=== PATIENT | female | born 2000 | race Two or more races ===

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

== ENCOUNTER 2021-01-23 09:53 | Emergency (ER) | payer MEDICAID ==
[2021-01-23 10:14] VITALS: BP 129/88; PULSE 61
--- NOTE | 2021-01-23 10:24 | EDM.PDOC ---
ED HPI GENERAL MEDICAL PROBLEM <Matilda Colindres - Last Filed: 01/23/21 11:56> - General Source of Information: Reports: Patient, RN, RN Notes Reviewed History Limitations: Reports: No Limitations - History of Present Illness Onset: Sudden Onset Date: 01/22/21 Location: Reports: Head Quality: Reports: Ache Severity: Moderate Improves with: Reports: None Worsens with: Reports: None Associated Symptoms: Reports: No Other Symptoms <KirtCurtis Harris - Last Filed: 01/23/21 14:47> - General Chief Complaint: Headache Stated Complaint: GEOVANNY REFERRAL Time Seen by Provider: 01/23/21 10:40 - History of Present Illness INITIAL COMMENTS - FREE TEXT/NARRATIVE: Eloise is a 20 y/o F with PMH of migraines, anxiety, MDD, ADHD, and oppositional defiant disorder. Yesterday at 6:30 am she was in her room trying to move her dog, fell and hit her head on a chair in her room. She did not lose consciousness and did not have an open wound from her fall. A few hours later she was in the kitchen, felt dizzy and passed out on her bed for about an hour. She had another similar episode a few hours later. Additionally, she has trouble sleeping and decreased appetite but no vomiting. Currently she is slightly dizzy with a slight headache. 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 Musculoskeletal History: Reports: None Neurological History: Reports: None Psychiatric History: Reports: ADHD, Anxiety, Depression Endocrine/Metabolic History: Reports: None Hematologic History: Reports: None Immunologic History: Reports: None Oncologic (Cancer) History: Reports: None Dermatologic History: Reports: None - Infectious Disease History Infectious Disease History: Reports: None - Past Surgical History Head Surgeries/Procedures: Reports: None HEENT Surgical History: Reports: Oral Surgery, Tonsillectomy Musculoskeletal Surgical History: Reports: Other (See Below) Other Musculoskeletal Surgeries/Procedures:: ingrown toenails <Matilda Colindres - Last Filed: 01/23/21 11:56> - Past Health History Medical/Surgical History: Denies Medical/Surgical History <Curtis Moralez - Last Filed: 01/23/21 14:47> Social & Family History - Family History Family Medical History: No Pertinent Family History - Caffeine Use Caffeine Use: Reports: Coffee, Soda Caffeine Use Comment: occasional coffee drinker, not regularly <Matilda Colindres - Last Filed: 01/23/21 11:56> ED ROS GENERAL - Review of Systems Review Of Systems: See Below Constitutional: Reports: Decreased Appetite. Denies: Fever, Chills, Malaise, Night Sweats, Diaphoresis, Weight Gain HEENT: Reports: Other (no neck stiffness or pain). Denies: Eye Discharge, Hearing Loss, Rhinitis, Vision Change Respiratory: Denies: Shortness of Breath, Cough, Sputum Cardiovascular: Reports: Lightheadedness, Palpitations. Denies: Chest Pain Endocrine: Denies: Fatigue GI/Abdominal: Denies: Abdominal Pain, Constipation, Diarrhea : Denies: Dysuria, Incontinence Musculoskeletal: Denies: Neck Pain Skin: Denies: Wound (Head is negative for any bruises, lesions or lumps), Lesions, Lumps Neurological: Reports: Dizziness, Headache. Denies: Confusion, Numbness, Paresthesia <Matilda Colindres - Last Filed: 01/23/21 11:56> ED EXAM, HEAD INJURY - Physical Exam Exam: See Below Exam Limited By: No Limitations General Appearance: Alert, No Apparent Distress Head: Atraumatic, Normocephalic. No: Scalp Lacerations, Scalp Swelling, Scalp Abrasions, Scalp Ecchymosis, Scalp Tenderness, Active Bleeding, Alvarez's Sign, Raccoon Eyes Nexus Criteria: No: Posterior, Midline Cervical Tenderness, Evidence of Intoxication, Altered Level of Consciousness, Focal Neurological Deficit, Painful Distraction Injuries Neck: Non-Tender, Full Range of Motion, Normal Inspection. No: Spinous Processes Tender, Stiff Neck, Tenderness Respiratory: No Respiratory Distress, Lungs Clear, Normal Breath Sounds, No Accessory Muscle Use Cardiovascular: Normal Peripheral Pulses, Regular Rate, Rhythm, No Murmur GI/Abdominal Exam: Normal Bowel Sounds, Soft, Non-Tender, No Organomegaly, No Distention Neurologic: No Motor/Sensory Deficits, Alert, Normal Mood/Affect, Oriented x 3 Skin: Normal Color, Warm/Dry <Matilda Colindres - Last Filed: 01/23/21 11:56> Course <Matilda Colindres - Last Filed: 01/23/21 11:56> <Curtis Moralez - Last Filed: 01/23/21 14:47> - Vital Signs Last Recorded V/S: Last Vital Signs Temp 98.1 F 01/23/21 10:13 Pulse 61 01/23/21 10:13 Resp 16 01/23/21 10:13 BP 129/88 01/23/21 10:13 Pulse Ox 99 01/23/21 10:13 - Orders/Labs/Meds Labs: Laboratory Tests 01/23/21 Range/Units 10:05 Urine HCG, Qual Negative Meds: Medications Discontinued Medications Generic Name Dose Route Start Last Admin Trade Name Miles PRN Reason Stop Dose Admin Metronidazole 2,000 mg 01/23/21 11:42 Metronidazole 250 Mg Tab PO 01/23/21 11:43 ONETIME ONE - Re-Assessments/Exams Free Text/Narrative Re-Assessment/Exam: 01/23/21 11:48 In ED Pt had normal neuro exam, no nausea/vomiting, no neck stiffness, or head wound. Head CT was negative for head intracranial bleed, fractures or brain pathology. Sending home with concussion precautions. Recommend follow up with PCP if continuing to have dizzy spells. 01/23/21 11:55 (BernadineMatilda Hassan) 01/23/21 I personally performed or re-performed the physical examination and medical decision making. I have verified all student documentation or findings, i ncluding history, physical exam and/or medical decision making. (Curtis Moralez) Departure - Departure Time of Disposition: 11:31 Condition: Good - Discharge Information *PRESCRIPTION DRUG MONITORING PROGRAM REVIEWED*: Not Applicable *COPY OF PRESCRIPTION DRUG MONITORING REPORT IN PATIENT MARIA ISABEL: Not Applicable <JoesphMatilda nvaas - Last Filed: 01/23/21 11:56> <Curtis Moralez - Last Filed: 01/23/21 14:47> - Departure Disposition: Home, Self-Care 01 Clinical Impression: Concussion Qualifiers: Encounter type: initial encounter Loss of consciousness presence/duration: without LOC Qualified Code(s): S06.0X0A - Concussion without loss of consci ousness, initial encounter - Discharge Information Instructions: Returning to School After a Concussion, Teen Referrals: Vince Mason MD [Primary Care Provider] - Forms: ED Department Discharge Additional Instructions: Follow concussion precautions including limiting screen time, overstimulation, driving, and physical activity in the next 2-3 weeks. No restriction for sleeping or rest. Take acetaminophen for headache. If still having episodes of dizziness, follow-up with your PCP, Dr. Mason, in the clinic. Sepsis Event Note (ED) - Focused Exam Vital Signs: Vital Signs Temp Pulse Resp BP Pulse Ox 01/23/21 10:13 98.1 F 61 16 129/88 99
--- NOTE | 2021-01-23 11:15 | CT ---
PROCEDURE INFORMATION: Exam: CT Head Without Contrast Exam date and time: 01/23/2021 11:05 AM Age: 20 years old Clinical indication: Injury or trauma; Fall; Unconscious; Injury date: 01/22/2021; Injury details: Patient fell and hit head yesterday; Additional info: Fell and hit head, 2 reported loc episodes TECHNIQUE: Imaging protocol: Computed tomography of the head without contrast. Radiation optimization: All CT scans at this facility use at least one of these dose optimization techniques: automated exposure control; mA and/or kV adjustment per patient size (includes targeted exams where dose is matched to clinical indication); or iterative reconstruction. COMPARISON: No relevant prior studies available. FINDINGS: Brain: There is no acute intracranial hemorrhage. No extra-axial fluid collection. No evidence of acute infarct. [place] white differentiation is intact. There is no evidence of mass. There is no mass effect or midline shift. Cerebral ventricles: No ventriculomegaly. Paranasal sinuses: Visualized sinuses are unremarkable. No fluid levels. Mastoid air cells: No significant mastoid effusion. Bones/joints: No acute fracture. Soft tissues: Unremarkable as visualized. IMPRESSION: No evidence of acute intracranial abnormality. No acute hemorrhage. No evidence of acute infarct or mass.
[2021-01-23] MEDS ORDERED: metroNIDAZOLE 250 MG Tab PO ONE (11:42)
== END 2021-01-23 11:54 | disposition home or self-care (01) ==
LOC: DL.ED 09:53
DX: S06.0X0A Concussion without loss of consciousness, initial encounter (principal); W20.8XXA Other cause of strike by thrown, projected or falling object, initial encounter; Y92.000 Kitchen of unspecified non-institutional (private) residence as the place of occurrence of the external cause
CPT/HCPCS: 70450; 81025; 99284-25

== ENCOUNTER 2021-03-30 14:36 | Emergency (ER) | payer MEDICAID ==
[2021-03-30 14:55] VITALS: BP 132/84; PULSE 108
== END 2021-03-30 15:36 | disposition home or self-care (01) ==
LOC: DL.ED 14:36
DX: K04.7 Periapical abscess without sinus (principal); K02.9 Dental caries, unspecified
CPT/HCPCS: 99283

== ENCOUNTER 2021-10-06 13:54 | Emergency (ER) | payer MEDICAID | END 2021-10-06 14:45 | disposition left against medical advice (07) | LOC: DL.ED 13:54 | DX: Z53.21 Procedure and treatment not carried out due to patient leaving prior to being seen by health care provider (principal) ==

== ENCOUNTER 2022-05-14 16:16 | Emergency (ER) | payer MEDICAID ==
[2022-05-14 16:32] VITALS: BP 135/103; PULSE 88
[2022-05-14 17:02] LABS: AMPHETAMINES,URINE NEGATIVE (NEGATIVE); BARBITURATES,URINE NEGATIVE (NEGATIVE); BENZODIAZEPINE,URINE NEGATIVE (NEGATIVE); MDMA (ECSTASY), URINE NEGATIVE (NEGATIVE); METHADONE,URINE NEGATIVE (NEGATIVE); METHAMPHETAMINES,URINE NEGATIVE (NEGATIVE); OPIATES,URINE NEGATIVE (NEGATIVE); OXYCODONE,URINE NEGATIVE (NEGATIVE); PHENCYCLIDINE,URINE NEGATIVE (NEGATIVE); TCA,URINE NEGATIVE (NEGATIVE)
[2022-05-14 17:19] LABS: ACETAMINOPHEN 0 ug/mL (10-30 (Therapeutic)); ESTIMATED GFR 127 mL/min (>=60)
[2022-05-14 17:22] LABS: PTT,PARTIAL THROMBOPLSTIN TIME 26.2 SEC (22.0-34.0)
[2022-05-14] MEDS: Phenazopyridine 95 MG Tab PO ONE (19:49)
[2022-05-14] MEDS: Nitrofurantoin Monohydrate/Macrocrystalline 100 MG Cap PO ONE (19:49)
[2022-05-15 08:54] LABS: ANION GAP 14.6 mEq/L (7-13); CHLORIDE,CL 103 mmol/L (98-107); SODIUM,NA 140 mmol/L (136-145)
== END 2022-05-14 19:51 | disposition home or self-care (01) ==
LOC: DL.ED 16:16
DX: R45.851 Suicidal ideations (principal); N30.00 Acute cystitis without hematuria
CPT/HCPCS: 36415; 80053; 80143; 80179; 80305-QW; 80307; 81001; 81025; 83735; 84443; 85025; 85610; 85730; 87086; 87491; 87563; 87591; 99284; 99285; A9270-GY

== ENCOUNTER 2023-05-02 13:29 | Emergency (ER) | payer MEDICAID ==
[2023-05-02 13:59] VITALS: BP 142/93; PULSE 70
[2023-05-02 14:05] LABS: BASOPHILS PERCENT AUTO 0.5 % (0.0-1.0); EOSINOPHILS PERCENT AUTO 1.3 % (1.0-3.0); HEMATOCRIT 42.9 % (37.0-47.0); HEMOGLOBIN 14.5 g/dL (12.0-16.0); LYMPHOCYTES PERCENT AUTO 37.4 % (20.5-50.1); MEAN CORPUSCULAR HEMOGLOBIN 29.5 pg (27.0-34.0); MEAN CORPUSCULAR HGB CONC 33.8 g/dL (33.0-35.0); MEAN CORPUSCULAR VOLUME 87.2 fL (80-100); MONOCYTES PERCENT AUTO 10.7 % (2-8); NEUTROPHILS PERCENT AUTO 50.1 % (42.2-75.2); PLATELET COUNT,PLT 232 10^3/uL (150-450); RED BLOOD CELL COUNT 4.92 10^6/uL (4.2-5.4)
[2023-05-02] MEDS: Sodium Chloride 0.9% 10 ML Syringe FLUSH PRN (14:17)
[2023-05-02] MEDS: Ketorolac 30 MG/ML SDV IVPUSH ONE (14:17)
[2023-05-02] MEDS: diphenhydrAMINE 50 MG/ML SDV IVPUSH ONE (14:17)
[2023-05-02] MEDS: Metoclopramide 10 MG/2 ML SDV IVPUSH ONE (14:17)
[2023-05-02] MEDS: Sodium Chloride 0.9% 1,000 ML IV ONE (14:18)
[2023-05-02 14:23] LABS: APPEARANCE,URINE CLEAR (CLEAR); BILIRUBIN,URINE NEGATIVE (NEGATIVE); COLOR,URINE YELLOW (YELLOW); GLUCOSE,URINE NEGATIVE (NEGATIVE); KETONES,URINE NEGATIVE (NEGATIVE); LEUKOCYTE ESTERASE,URINE NEGATIVE (NEGATIVE); NITRITE,URINE NEGATIVE (NEGATIVE); OCCULT BLOOD,URINE SMALL (NEGATIVE); PH,URINE 8.5 (5.0-9.0); PROTEIN,URINE NEGATIVE (NEGATIVE)
[2023-05-02 14:26] LABS: A/G RATIO 1.1; ALANINE AMINOTRANSFERASE,ALT 13 U/L (14-59); ALBUMIN 3.7 g/dL (3.4-5.0); ALKALINE PHOSPHATASE 109 U/L (46-116); AMYLASE 59 U/L (25-115); ANION GAP 13.1 mEq/L (7-13); ASPARTATE AMNIOTRANSFERASE,AST 6 U/L (15-37); BILIRUBIN TOTAL 0.5 mg/dL (0.2-1.0); BLOOD UREA NITROGEN,BUN 8 mg/dL (7-18); BUN/CREATININE RATIO 10.4 (No establ ref range); CALCIUM 9.2 mg/dL (8.5-10.1); CARBON DIOXIDE,CO2 27 mmol/L (21-32); CHLORIDE,CL 104 mmol/L (98-107); CREATININE 0.77 mg/dL (0.55-1.02); EST CRCL DRUG DOSING (CG) 87.21 mL/min; GLUCOSE RANDOM 91 mg/dL (70-99); LIPASE 32 U/L (16-77); POTASSIUM,K 4.1 mmol/L (3.5-5.1); PROTEIN TOTAL,TP 7.1 g/dL (6.4-8.2); SODIUM,NA 140 mmol/L (136-145)
[2023-05-02 14:31] LABS: LACTIC ACID 1.5 mmol/L (0.4-2.0)
[2023-05-02 14:34] LABS: C-REACTIVE PROTEIN < 0.50 ng/dL (<=0.50); ESTIMATED GFR 112 mL/min (>=60)
[2023-05-02 14:34] LABS: AMPHETAMINES,URINE NEGATIVE (NEGATIVE); BARBITURATES,URINE NEGATIVE (NEGATIVE); BENZODIAZEPINE,URINE NEGATIVE (NEGATIVE); MDMA (ECSTASY), URINE NEGATIVE (NEGATIVE); METHADONE,URINE NEGATIVE (NEGATIVE); METHAMPHETAMINES,URINE NEGATIVE (NEGATIVE); OPIATES,URINE NEGATIVE (NEGATIVE); OXYCODONE,URINE NEGATIVE (NEGATIVE); PHENCYCLIDINE,URINE NEGATIVE (NEGATIVE); TCA,URINE NEGATIVE (NEGATIVE)
[2023-05-02 14:42] LABS: CORONAVIRUS COVID-19 NAA NEGATIVE (NEGATIVE); INFLUENZA A NAA NEGATIVE (NEGATIVE); INFLUENZA B NAA NEGATIVE (NEGATIVE); RESPIRATORY SYNCYTIAL VIR NAA NEGATIVE (NEGATIVE)
[2023-05-02 15:59] LABS: BACTERIA,URINE MANY /HPF (0-FEW/HPF); EPITHELIAL CELLS,URINE MODERATE /HPF (NOT SEEN); RBC,URINE 0-5 /HPF (0-5); WBC,URINE 0-5 /HPF (0-5/HPF)
== END 2023-05-02 15:14 | disposition home or self-care (01) ==
LOC: DL.ED 13:29
DX: G43.909 Migraine, unspecified, not intractable, without status migrainosus (principal); R10.9 Unspecified abdominal pain; Z79.899 Other long term (current) drug therapy
CPT/HCPCS: 0241U; 36415; 80053; 80305; 81001; 81025; 82150; 83605; 83690; 85025; 86140; 96374; 96375; 99284; J1200; J1885; J2765; J7030; 99283; J3490

== ENCOUNTER 2024-01-01 13:19 | Emergency (ER) | payer MEDICAID ==
[2024-01-01] MEDS: Ondansetron 4 MG Tab.DIS PO ONE (13:48)
[2024-01-01 13:55] VITALS: BP 137/99; PULSE 99
== END 2024-01-01 15:00 | disposition home or self-care (01) ==
LOC: DL.ED 13:19
DX: R11.0 Nausea (principal); R51.9 Headache, unspecified; Z79.899 Other long term (current) drug therapy
CPT/HCPCS: 87635; 87804; 99283; A9270; U0002

== ENCOUNTER 2024-03-26 09:13 | Emergency (ER) | payer MEDICAID ==
[2024-03-26 10:28] LABS: BILIRUBIN,URINE NEGATIVE (NEGATIVE); COLOR,URINE YELLOW (YELLOW); GLUCOSE,URINE NEGATIVE (NEGATIVE); KETONES,URINE NEGATIVE (NEGATIVE); LEUKOCYTE ESTERASE,URINE NEGATIVE (NEGATIVE); NITRITE,URINE NEGATIVE (NEGATIVE); OCCULT BLOOD,URINE TRACE-INTACT (NEGATIVE); PROTEIN,URINE TRACE (NEGATIVE); UROBILINOGEN,URINE 0.2 mg/dL (0.2-1.0)
[2024-03-26 10:30] LABS: APPEARANCE,URINE SLIGHTLY CLOUDY (CLEAR)
[2024-03-26 10:37] LABS: BACTERIA,URINE MANY /HPF (0-FEW/HPF); EPITHELIAL CELLS,URINE MANY /HPF (NOT SEEN); MUCUS,URINE MODERATE /LPF (NOT SEEN); RBC,URINE 0-5 /HPF (0-5); WBC,URINE 0-5 /HPF (0-5/HPF)
[2024-03-26] MEDS: Ketorolac 30 MG/ML SDV IM ONE (10:41)
[2024-03-26] MEDS: Ondansetron 4 MG Tab.DIS PO ONE (10:41)
[2024-03-26 11:53] VITALS: BP 117/84; PULSE 70
== END 2024-03-26 11:55 | disposition home or self-care (01) ==
LOC: DL.ED 09:13
DX: R51.9 Headache, unspecified (principal); Z79.899 Other long term (current) drug therapy
CPT/HCPCS: 81001; 81025; 87428; 96372; 99283; A9270; J1885